=== PATIENT | female | born 1995 | race Caucasian/White ===

== ENCOUNTER 2024-05-07 14:31 | Emergency (ER) | payer OTHER ==
[~2024-05-07] VITALS: Ht 152.4 cm; Wt 59.0 kg
[2024-05-07] MEDS ORDERED: SODIUM CHLORIDE 0.9% 1,000 ML IV ONE (15:25)
[2024-05-07] MEDS ORDERED: Ketorolac Tromethamine 30 MG/ML VIAL IV ONE (15:25)
[2024-05-07] MEDS ORDERED: IOHEXOL 300 MG/ML 100 ML VIAL IV ONE (15:30)
[2024-05-07 15:40] LABS: BASO # 0.1 10*3/uL (0.0-0.1); BASO % 0.7 % (0.0-1.0); EOS # 1.9 10*3/uL (0.0-0.4); EOS % 16.7 % (1.0-4.0); LYMPH # 2.9 10*3/uL (1.3-4.4); LYMPH % 25.7 % (27.0-41.0); MEAN CELL VOLUME 88.4 fl (81.0-99.0); MEAN CORPUSCULAR HGB 29.7 pg (27.0-31.0); MEAN CORPUSCULAR HGB CONC 33.6 g/dl (33.0-37.0); MEAN PLATELET VOLUME 10.6 fl (9.6-12.3); MONO # 0.6 10*3/uL (0.1-1.0); MONO % 5.5 % (3.0-9.0); NEUT # 5.7 10*3/uL (2.3-7.9); PLATELET COUNT AUTOMATED 267 10*3/uL (130-400); RED BLOOD COUNT 4.75 10*6/uL (4.10-5.10); WHITE BLOOD COUNT 11.1 10*3/uL (4.8-10.8)
[2024-05-07 15:51] LABS: BILIRUBIN Negative (Negative); BLOOD Negative (Negative); CLARITY Clear (Clear); COLOR Yellow (Yellow); GLUCOSE Negative (Negative); KETONE Negative (Negative); LEUKO ESTERASE Trace (Negative); NITRITE Negative (Negative); PH 5.5 (4.5-8.0); SPECIFIC GRAVITY <= 1.005 (1.001-1.030); UROBILINOGEN 0.2 E.U./dl (0.0-1.0)
[2024-05-07 15:58] LABS: BACTERIA TRACE
[2024-05-07 16:02] LABS: ALKALINE PHOSPHATASE 70 U/L (46-116); BUN 11 mg/dl (9-23); CHLORIDE 106 mmol/L (98-107); LIPASE 34 U/L (12-53); POTASSIUM 3.7 mmol/L (3.4-5.1); TOTAL PROTEIN 8.1 gm/dL (6.0-8.0)
[2024-05-07 16:08] LABS: SGPT/ALT < 7 U/L (5-49)
== END 2024-05-07 16:56 | disposition home or self-care (01) ==
LOC: ED 14:31
PROVIDERS: Physician Assistant Medical
DX: R10.31 Right lower quadrant pain (principal); Z90.49 Acquired absence of other specified parts of digestive tract

== ENCOUNTER 2024-09-09 09:02 | Inpatient (IN) | payer SELFPAY ==
[~2024-09-09] VITALS: Ht 152.4 cm; Wt 56.4 kg
[2024-09-09 09:14] VITALS: BP 101/75
[2024-09-09] MEDS ORDERED: Ketorolac Tromethamine 15 MG/ML VIAL IV ONE (09:25)
[2024-09-09] MEDS ORDERED: Metoclopramide Hydrochloride 10 MG/2 ML VIAL IV ONE (09:25)
[2024-09-09] MEDS ORDERED: diphenhydrAMINE hydrochloride 50 MG/ML VIAL IV ONE (09:25)
[2024-09-09] MEDS ORDERED: SODIUM CHLORIDE 0.9% 1,000 ML IV ONE ×2 (09:25→13:25)
[2024-09-09 09:37] LABS: HEMATOCRIT 40.9 % (37.0-47.0); MEAN CELL VOLUME 85.7 fl (81.0-99.0); MEAN CORPUSCULAR HGB 29.1 pg (27.0-31.0); MEAN PLATELET VOLUME 10.3 fl (9.6-12.3); PLATELET COUNT AUTOMATED 275 10*3/uL (130-400); RED BLOOD COUNT 4.77 10*6/uL (4.10-5.10); RED CELL DISTRI WIDTH 12.4 % (0-14.5); WHITE BLOOD COUNT 29.5 10*3/uL (4.8-10.8)
[2024-09-09 09:38] LABS: MANUAL DIFF REFLEX YES
[2024-09-09 09:57] LABS: TOTAL CELLS COUNTED 100 #CELLS
[2024-09-09 09:58] LABS: BUN 13 mg/dl (9-23); CHLORIDE 101 mmol/L (98-107); PLATELET SUFFICIENCY NORMAL (NORMAL); POTASSIUM 2.9 mmol/L (3.4-5.1); VACUOLATION OF NEUTROPHILS SLIGHT
[2024-09-09] MEDS ORDERED: AZITHROMYCIN 250 MG TAB PO ONE (10:50)
[2024-09-09] MEDS ORDERED: Ceftriaxone Sodium 1 GM/10 ML SYR IV ONE (10:50)
[2024-09-09] MEDS ORDERED: POTASSIUM CHLORIDE 20 MEQ TAB PO ONE (10:55)
[2024-09-09] MEDS ORDERED: VITAMIN D31250 MC1 PO (11:17)
[2024-09-09] MEDS ORDERED: ACETAMINOPHEN 650 MG SUPP R PRN (13:20)
[2024-09-09] MEDS ORDERED: BISACODYL 10 MG SUPP R PRN (13:20)
[2024-09-09] MEDS ORDERED: Ondansetron Hydrochloride 4 MG/2 ML VIAL IV PRN (13:20)
[2024-09-09] MEDS ORDERED: Magnesium Hydroxide 30 ML UDC PO PRN (13:20)
[2024-09-09] MEDS ORDERED: Acetaminophen/Hydrocodone 5 MG/325 MG TABLET PO PRN (13:20)
[2024-09-09] MEDS ORDERED: BISACODYL 5 MG TAB PO PRN (13:20)
[2024-09-09] MEDS ORDERED: ACETAMINOPHEN 325 MG TAB PO PRN (13:20)
[2024-09-09 13:30] VITALS: BP 104/50
[2024-09-09] MEDS ORDERED: MORPHINE Sulfate 2 MG/ML SYR IV PRN (13:45)
[2024-09-09] MEDS ORDERED: Albuterol Sulf/Ipratropium 3 ML VIAL NEB SCH (13:45)
[2024-09-09] MEDS ORDERED: MAGNESIUM SULFATE 50 ML IV ONE (14:10)
[2024-09-09 16:00] VITALS: BP 110/53
[2024-09-09] MEDS ORDERED: SODIUM CHLORIDE 0.9% 1,000 ML IV SCH (16:05)
[2024-09-09] MEDS ORDERED: Metoprolol Tartrate 5 MG/5 ML VIAL IV ONE (18:35)
[2024-09-09] MEDS ORDERED: predniSONE 20 MG TAB PO ONE (19:00)
[2024-09-09 20:00] VITALS: BP 109/49
[2024-09-09] MEDS ORDERED: methylPREDNISolone sod succ 40 MG VIAL IV SCH (22:00)
[2024-09-10] VITALS: BP 102/60
[2024-09-10] MEDS ORDERED: Melatonin 5 MG TABLET PO PRN (00:25)
[2024-09-10] MEDS ORDERED: predniSONE 20 MG TAB PO ONE ×2 (01:00→07:00)
[2024-09-10 05:46] LABS: ALKALINE PHOSPHATASE 94 U/L (46-116); BUN 11 mg/dl (9-23); CHLORIDE 109 mmol/L (98-107); CHOLESTEROL 68 mg/dL (<200); LDL CHOLESTEROL 27 mg/dL (9-159); POTASSIUM 3.6 mmol/L (3.4-5.1); SGPT/ALT 13 U/L (5-49); TOTAL PROTEIN 6.1 gm/dL (6.0-8.0); TRIGLYCERIDES 60 mg/dl (<150)
[2024-09-10 05:47] LABS: VITAMIN D, 25-HYDROXY 46.5 ng/mL (30-100)
[2024-09-10 06:45] LABS: HEMATOCRIT 31.1 % (37.0-47.0); MEAN CELL VOLUME 86.6 fl (81.0-99.0); MEAN CORPUSCULAR HGB CONC 33.4 g/dl (33.0-37.0); MEAN PLATELET VOLUME 10.8 fl (9.6-12.3); PLATELET COUNT AUTOMATED 208 10*3/uL (130-400); RED BLOOD COUNT 3.59 10*6/uL (4.10-5.10); RED CELL DISTRI WIDTH 12.9 % (0-14.5); WHITE BLOOD COUNT 15.3 10*3/uL (4.8-10.8)
[2024-09-10 06:54] LABS: MANUAL DIFF REFLEX YES
[2024-09-10] MEDS ORDERED: diphenhydrAMINE hydrochloride 25 MG CAP PO ONE (07:00)
[2024-09-10] MEDS ORDERED: SODIUM CHLORIDE 0.9% 100 ML BAG IV ONE (07:55)
[2024-09-10] MEDS ORDERED: Iodixanol 320 100 ML VIAL IV ONE (07:55)
[2024-09-10 08:00] VITALS: BP 94/44
[2024-09-10] MEDS ORDERED: Phosphorus/Potassium 1.45 GM PACKET PO SCH (08:00)
[2024-09-10] MEDS ORDERED: POTASSIUM PHOS IN 0.9 % NACL 250 ML IV ONE (08:00)
[2024-09-10 08:16] LABS: ATYPICAL LYMPHS 2 % (0-0); PLATELET SUFFICIENCY NORMAL (NORMAL); TOTAL CELLS COUNTED 100 #CELLS
[2024-09-10 08:17] LABS: BURR CELLS MODERATE; TOXIC GRANULATION SLIGHT
[2024-09-10] MEDS ORDERED: Enoxaparin Sodium 40 MG/0.4 ML SYR SC SCH (10:00)
[2024-09-10] MEDS ORDERED: AZITHROMYCIN 250 ML IV SCH (10:00)
[2024-09-10] MEDS ORDERED: Ceftriaxone Sodium 10 ML IV SCH (11:00)
[2024-09-10 12:00] VITALS: BP 121/69
[2024-09-10 16:00] VITALS: BP 113/72
[2024-09-10] MEDS ORDERED: Metoprolol Tartrate 25 MG TAB PO SCH (17:10)
[2024-09-10 20:00] VITALS: BP 115/68
[2024-09-10] MEDS ORDERED: TEMAZEPAM 15 MG CAP PO PRN (22:00)
[2024-09-11] VITALS: BP 116/67
[2024-09-11] MEDS ORDERED: Levalbuterol Hydrochloride 1.25 MG VIAL NEB SCH ×2 (01:35)
[2024-09-11 01:41] LABS: MEAN CELL VOLUME 85.5 fl (81.0-99.0); MEAN CORPUSCULAR HGB 29.1 pg (27.0-31.0); MEAN PLATELET VOLUME 10.3 fl (9.6-12.3); PLATELET COUNT AUTOMATED 224 10*3/uL (130-400); RED BLOOD COUNT 3.51 10*6/uL (4.10-5.10); RED CELL DISTRI WIDTH 13.2 % (0-14.5); WHITE BLOOD COUNT 14.5 10*3/uL (4.8-10.8)
[2024-09-11 01:50] LABS: MANUAL DIFF REFLEX YES
[2024-09-11 02:01] LABS: BUN 11 mg/dl (9-23); CHLORIDE 109 mmol/L (98-107); POTASSIUM 3.3 mmol/L (3.4-5.1)
[2024-09-11 02:40] LABS: TOTAL CELLS COUNTED 100 #CELLS
[2024-09-11 02:41] LABS: PLATELET SUFFICIENCY NORMAL (NORMAL)
[2024-09-11 08:00] VITALS: BP 121/62
[2024-09-11 11:50] VITALS: BP 119/58
[2024-09-11] MEDS ORDERED: LEVOFLOXACIN750 M2 PO (12:50)
[2024-09-11] MEDS ORDERED: SODIUM-POTASSI1 EACH PO (12:50)
[2024-09-11] MEDS ORDERED: PREDNISONE10 MG PO (12:50)
[2024-09-11] MEDS ORDERED: LOPRESSOR25 MG PO (12:50)
== END 2024-09-11 14:42 | disposition home or self-care (01) | DRG 871 ==
LOC: ED 09:02 → EDHOLD 11:02 → 4E 11:02
PROVIDERS: Emergency Medicine; Student in an Organized Health Care Education/Training Program; ADMIT Internal Medicine; ATTEND Internal Medicine
DX: A41.9 Sepsis, unspecified organism (principal); J15.69 Pneumonia due to other Gram-negative bacteria; N17.0 Acute kidney failure with tubular necrosis; E87.20 Acidosis, unspecified; E87.1 Hypo-osmolality and hyponatremia; J45.41 Moderate persistent asthma with (acute) exacerbation; R65.20 Severe sepsis without septic shock; F41.9 Anxiety disorder, unspecified; E87.6 Hypokalemia; R73.9 Hyperglycemia, unspecified; E83.42 Hypomagnesemia; E03.9 Hypothyroidism, unspecified; Z20.822 Contact with and (suspected) exposure to COVID-19; E83.39 Other disorders of phosphorus metabolism; Z87.891 Personal history of nicotine dependence; Z90.49 Acquired absence of other specified parts of digestive tract; Z83.3 Family history of diabetes mellitus; Z82.0 Family history of epilepsy and other diseases of the nervous system; Z91.041 Radiographic dye allergy status; Z79.899 Other long term (current) drug therapy

== ENCOUNTER 2024-12-24 12:16 | Emergency (ER) | payer SELFPAY ==
[~2024-12-24] VITALS: Ht 152.4 cm; Wt 59.0 kg
[~2024-12-24 12:16] MED LIST: LEVOFLOXACIN750 M2 PO; LOPRESSOR25 MG PO; PREDNISONE10 MG PO; SODIUM-POTASSI1 EACH PO; VITAMIN D31250 MC1 PO
[2024-12-24] MEDS ORDERED: Dexamethasone Sodium Phospha 20 MG/5 ML VIAL PO ONE (12:55)
[2024-12-24] MEDS ORDERED: Albuterol Sulf/Ipratropium 3 ML VIAL NEB ONE (12:55)
[2024-12-24 13:14] LABS: BASO # 0.1 10*3/uL (0.0-0.1); BASO % 1.1 % (0.0-1.0); EOS # 0.4 10*3/uL (0.0-0.4); EOS % 7.8 % (1.0-4.0); HEMATOCRIT 43.6 % (37.0-47.0); MEAN CELL VOLUME 86.9 fl (81.0-99.0); MEAN CORPUSCULAR HGB 28.7 pg (27.0-31.0); MEAN PLATELET VOLUME 10.4 fl (9.6-12.3); MONO # 0.4 10*3/uL (0.1-1.0); MONO % 9.3 % (3.0-9.0); NEUT # 2.3 10*3/uL (2.3-7.9); NEUT % 49.6 % (47.0-73.0); PLATELET COUNT AUTOMATED 257 10*3/uL (130-400); RED BLOOD COUNT 5.02 10*6/uL (4.10-5.10); RED CELL DISTRI WIDTH 12.2 % (0-14.5); WHITE BLOOD COUNT 4.6 10*3/uL (4.8-10.8)
[2024-12-24 13:35] LABS: ALKALINE PHOSPHATASE 64 U/L (46-116); BUN 15 mg/dl (9-23); CHLORIDE 106 mmol/L (98-107); POTASSIUM 3.9 mmol/L (3.4-5.1)
[2024-12-24 13:39] LABS: SGPT/ALT < 7 U/L (5-49)
[2024-12-24 13:55] LABS: BILIRUBIN Negative (Negative); BLOOD Negative (Negative); CLARITY Clear (Clear); COLOR Yellow (Yellow); GLUCOSE Negative (Negative); KETONE Negative (Negative); LEUKO ESTERASE Trace (Negative); NITRITE Negative (Negative); PH 5.5 (4.5-8.0); UROBILINOGEN 0.2 E.U./dl (0.0-1.0)
[2024-12-24 14:26] LABS: BACTERIA 1+; RBC 0-2 rbc/hpf (0-2)
[2024-12-24] MEDS ORDERED: AMOX-CLAV 875-1 EACH PO (14:39)
[2024-12-24] MEDS ORDERED: Amoxicillin/Clavulanate Pota 875 MG TAB PO ONE (14:40)
== END 2024-12-24 14:54 | disposition home or self-care (01) ==
LOC: ED 12:16
PROVIDERS: Nurse Practitioner
DX: J02.9 Acute pharyngitis, unspecified (principal); Z20.822 Contact with and (suspected) exposure to COVID-19; R09.A2 Foreign body sensation, throat; R59.0 Localized enlarged lymph nodes; I10 Essential (primary) hypertension; J45.909 Unspecified asthma, uncomplicated; F17.290 Nicotine dependence, other tobacco product, uncomplicated; Z91.041 Radiographic dye allergy status; Z79.899 Other long term (current) drug therapy; Z90.49 Acquired absence of other specified parts of digestive tract